=== PATIENT | male | born 1970 | race Caucasian/White ===

== ENCOUNTER 2019-11-11 16:47 | Inpatient (IN) | payer OTHER ==
[2019-11-11] VITALS (10 sets, daily range): BP systolic 72–100; BP diastolic 30–61
[~2019-11-11] VITALS: Ht 182.9 cm; Wt 80.9 kg
--- NOTE | 2019-11-11 17:05 | NUR ---
CALLED [facility], SPOKE WITH PANKAJ, RECIEVED FOLLOWING RECCOMNEDATION: LABS TO INCLUDE: UDS, TYLNEOL, ASA, BLOOD ALCOHOL, CMP, CBC CAN START MUCOMYST TREATMENT IF ELEVATED TYLENOL LEVEL OR IF LFT ARE ELEVATED. NARCAN PRN LOSS CONTROL REPRESENTATIVE DEPRESSION IV FLUIDS FOR HYPOTENSION MONITOR FOR 4-6 HOURS AFTER LAST NARCAN ADMIN
--- NOTE | 2019-11-11 17:05 | NUR ---
AYSHA FROM HOME, CALLED 911. C/O SUICIDAL IDEATION X TODAY, UNKNOWN SPECIFIC TIME. TOOK UNKNOWN AMOUNT OF ALCOHOL AND UNKNOWN DOSE OF ATIVAN AND NORCO WITH INTENT TO KILL HIMSELF, PER PATIENT. PT STATES 1ST ATTEMPT. PT VERY LETHARGIC WITH UNSTEADY GAIT AND WEAKNESS TO EXTREMETIES. PT SLOW TO RESPOND BUT RESPONDS TO VERBAL STIMULI. PUPILS SLUGGISH TO RESPOND, 2 MM. SLOW SPEECH. PT ALERT TO NAME AND BIRTHDAY, UNAWARE OF LOCATION AT THIS TIME, RE-ORIENTED. [address] UPON ARRIVAL TO ER PMH- DEPRESSION AND HTN RX- ATIVAN AND NORCO
--- NOTE | 2019-11-11 17:06 | NUR ---
PT RECIEVED 0.5 MG OF NARCAN IN FIELD BY EMS
--- NOTE | 2019-11-11 17:06 | NUR ---
PT PLACED ON 2 L NC Addendum: 11/11/19 at 1710 by [email or web address] AND EXPERIMENTAL ROCKET SLED MECHANIC
--- NOTE | 2019-11-11 17:09 | NUR ---
1-1 MONITORING, SITTER IN PLACE, HARMFUL OBJECTS REMOVED FROM PTS ROOM, PT PLACED IN HOSPITAL GOWN
--- NOTE | 2019-11-11 17:13 | NUR ---
IVF BOLUS STARTED .IV NEEDLE INSERTED BY EMS GAUGE 18 TAPE AND SECURED.
[2019-11-11] MEDS ORDERED: NACL 0.9% 1,000 ML IV ONE ×4 (17:25→20:25)
--- NOTE | 2019-11-11 17:32 | NUR ---
LAB AT BEDSIDE
[2019-11-11 17:50] LABS: BASOPHILS % (AUTO) 0.3 % (0.0-2.0); EOSINOPHILS % (AUTO) 0.1 % (0.0-4.0); HEMATOCRIT 43.1 % (36-52); HEMOGLOBIN 14.2 g/dL (12.0-18.0); LYMPHOCYTES # (AUTO) 1.2 K/uL (2.0-11.5); LYMPHOCYTES % (AUTO) 14.9 % (20.5-51.1); MEAN CORPUSCULAR HEMOGLOBIN 31 pg (27-31); MEAN CORPUSCULAR HGB CONC 33 g/dL (33-37); MEAN CORPUSCULAR VOLUME 94.2 fL (80-94); MONOCYTES # (AUTO) 0.5 K/uL (0.8-1.0); MONOCYTES % (AUTO) 6.3 % (1.7-9.3); NEUTROPHILS # (AUTO) 6.6 K/uL (1.8-7.7); NEUTROPHILS % (AUTO) 78.4 % (42.2-75.2); PLATELET COUNT (AUTO) 418 K/uL (140-450); RED BLOOD CELL COUNT(AUTO) 4.58 MIL/uL (4.20-6.10); RED CELL DISTRIBUTION WIDTH 13.8 % (11.6-13.7); WHITE BLOOD COUNT (AUTO) 8.4 K/uL (4.8-10.8)
--- NOTE | 2019-11-11 17:50 | NUR ---
# 14 FR Urinary catheter inserted utilizing sterile technique. Immediate return of 100 ml SHAY urine noted. Urine sample collected and sent to lab. Pt tolerated procedure WELL.
--- NOTE | 2019-11-11 17:50 | NUR ---
NADR AT THIS TIME
[2019-11-11 18:04] LABS: ANION GAP 16.3 (8-16); CARBON DIOXIDE 24.1 mmol/L (21-32); CREATININE 0.8 mg/dL (0.7-1.3); POTASSIUM 3.4 mmol/L (3.5-5.1)
[2019-11-11 18:05] LABS: SALICYLATE < 2.8 mg/dL (2.8-20.0)
--- NOTE | 2019-11-11 18:07 | NUR ---
NEURO CHECK-PT STILL VERY LETHARGIC BUT OPENS EYES TO HIS NAME BEING CALLED. PUPILS SLUGGISH TO RESPOND, 2 MM. SLOW SPEECH BUT ANSWERS QUESTIONS BEING ASKED. FOLLOWS COMMANDS IN SLOW MANNER. PT INSTANTLY FALLS BACK TO SLEEP AFTER RE-AWAKENING
--- NOTE | 2019-11-11 18:08 | NUR ---
SUGGESTED NARCAN TO DR GIBBS, VERBAL ORDER FOR ANOTHER BOLUS. NOT TO GIVE NARCAN
[2019-11-11 18:10] LABS: ALBUMIN 3.3 g/dL (3.4-5.0); TOTAL BILIRUBIN 0.3 mg/dL (0.0-1.0)
[2019-11-11 18:10] LABS: BARBITURATE, URINE NEG. ng/ml (NEG <=200); BENZODIAZEPINE, URINE NEG. ng/mL (NEG <=200); CANNABINOID, URINE NEG. ng/mL (NEG <=50); COCAINE, URINE NEG. ng/mL (NEG <=300); OPIATE, URINE POS. ng/mL (NEG <=2000); PHENCYCLIDINE SCREEN,URINE NEG. ng/mL (NEG <=25)
[2019-11-11 18:19] LABS: CREATINE KINASE MB 0.3 ng/mL (0-3.6)
--- NOTE | 2019-11-11 18:30 | NUR ---
NEW BP 93/59, BOLUS BEING ADMINISTERED. DR BERNIE DENIS OF PT STATUS
[2019-11-11] MEDS ORDERED: NALOXONE PFS 2 MG/2 ML SYR ONE ×2 (18:55→18:58)
--- NOTE | 2019-11-11 18:55 | NUR ---
PT NONREPSONSIVE TO STIMULI. ARMS FLACCID. APHASIC. STERNAL RUB APPLIED WITH NO RESPONSE FROM PT.
--- NOTE | 2019-11-11 18:56 | NUR ---
NARCAN 2 MG PUSHED IV, STERNAL RUB APPLIED. PT NON-RESPONSIVE TO STIMULI
--- NOTE | 2019-11-11 19:03 | NUR ---
JAWLIFT MANEUVER APPLIED
--- NOTE | 2019-11-11 19:03 | NUR ---
RT AT BEDSIDE
--- NOTE | 2019-11-11 19:03 | NUR ---
PTS OXYGEN DROPPED TO 78% ON NC. PT SWITCHED TO MASK 15 L, DR GIBBS AT BEDSIDE
[2019-11-11] MEDS ORDERED: PROPOFOL 1000 MG/100 ML PREMIX 100 ML IV ONE (19:04)
[2019-11-11] MEDS ORDERED: ETOMIDATE 20 MG/10 ML VIAL IVP ONE ×3 (19:04→19:40)
--- NOTE | 2019-11-11 19:04 | NUR ---
ETOMIDATE ADMINISTERED Addendum: 11/11/19 at 1927 by [email or web address] 20 MG
--- NOTE | 2019-11-11 19:05 | NUR ---
1 CC OF SUCCS ADMINISTERED Addendum: 11/11/19 at 1906 by [email or web address] 20 MG OF SUCCS
--- NOTE | 2019-11-11 19:07 | NUR ---
ANOTHER 40 MG OF SUCCS ADMINISTERED
--- NOTE | 2019-11-11 19:11 | NUR ---
ETOMIDATE 20 MG ADMINISTERED
--- NOTE | 2019-11-11 19:13 | NUR ---
ANOTHER 40 MG OF SUCCS ADMINISTERED
--- NOTE | 2019-11-11 19:15 | NUR ---
20 MG OF ETOMIDATE ADMINISTERED
--- NOTE | 2019-11-11 19:17 | NUR ---
Respiratory Therapist at bedside for respiratory intervention.
--- NOTE | 2019-11-11 19:18 | NUR ---
PROPOFOL STARTED AT 5 MCG/KG/MIN
[2019-11-11] MEDS ORDERED: PROPOFOL 200 MG/20 ML VIAL IV ONE (19:20)
--- NOTE | 2019-11-11 19:20 | NUR ---
X-Ray at bedside.
--- NOTE | 2019-11-11 19:22 | NUR ---
REPORT RECIEVED FROM LENNY DEJESUS, PATIENT INTUBATED, XRAY AT BEDSIDE.
--- NOTE | 2019-11-11 19:22 | NUR ---
REPORT GIVEN TO FREDDIE DEJESUS
--- NOTE | 2019-11-11 19:25 | NUR ---
PATIENT RASS -4. ET TUBE TO VENT, VSS ON MONITOR, PROPOFOL RUNNING IN LEFT AC 5MCG/MIN
[2019-11-11] MEDS ORDERED: SUCCINYLCHOLINE CHLORIDE 200 MG/10 ML VIAL IVP ONE ×3 (19:40)
--- NOTE | 2019-11-11 20:20 | NUR ---
BP DROPPED TO 84/55, DR GIBBS INFORMED. 1 LITER NS BOLUS ADMINISTERED ORDERED.
--- NOTE | 2019-11-11 20:26 | NUR ---
VS BEING DOCUMENTED Q15 MINUTES IN IV SPREADSHEET. BP IMPROVED TO 91/61 ERMD AWARE
[2019-11-11] MEDS ORDERED: LORazepam 2 MG/ML VIAL IM/IVP PRN (20:40)
[2019-11-11] MEDS ORDERED: MORPHINE SULFATE 2 MG/ML SYR IVP PRN (20:40)
[2019-11-11] MEDS ORDERED: HYDROcodone/APAP 5/325 MG 1 TAB TAB PO PRN (20:40)
[2019-11-11] MEDS ORDERED: ZOLPIDEM 5 MG TAB PO PRN (20:40)
[2019-11-11] MEDS ORDERED: ACETAMINOPHEN 325 MG TAB PO PRN (20:40)
[2019-11-11] MEDS ORDERED: DOCUSATE SODIUM 100 MG GELCAP PO PRN (20:40)
[2019-11-11] MEDS ORDERED: ONDANSETRON 4 MG/2 ML VIAL IM/IVP PRN (20:40)
--- NOTE | 2019-11-11 20:40 | NUR ---
OWUSU CATH PLACED USING STERILE TECHNIQUE PATIENT TOLERATED WELL.
[2019-11-11] MEDS ORDERED: LORazepam 2 MG/ML VIAL IVP PRN (20:45)
--- NOTE | 2019-11-11 20:50 | NUR ---
SPOKE WITH POISON CONTROL. RECOMMENDED STARTING PATIENT ON 21 HOUR MYCOMIST IV TREATMENT. MADE AWARE.
--- NOTE | 2019-11-11 20:59 | NUR ---
called [facility] errol [phone] and rena
[2019-11-11 21:09] LABS: CHOL/HDL RATIO 4.1 (1-4.5); MAGNESIUM 2.4 mg/dL (1.8-2.4); THYROID STIMULATING HORMONE 1.13 uIU/mL (0.34-3.74)
--- NOTE | 2019-11-11 21:35 | NUR ---
PATIENT BROUGHT INTO ICU BED 3 VIA GURNEY, TRANSFERRED TO BED WITHOUT INCIDENTS
--- NOTE | 2019-11-11 21:45 | NUR ---
PATIENT ADMITTED TO HOSPITAL ICU UNDER CARE OF DR PETER. REPORT GIVEN TO ICU NURSE DARCY. PATIENT TRANSPORTED TO BED 3 VIA GURNEY WITH RT, RN AND EMT ESCORT. PATIENT STABLE DURING TRANSPORT.
--- NOTE | 2019-11-11 21:45 | NUR ---
RECEIVED REPORT FROM ER NURSE. PATIENT 7.5 ETT TO VENT, 24 AT LIP LINE. ACVC 14 FI02 40% TV 600 PEEP 5. ANOx0, ON PROPOFOL DRIP AT 10 MCG/KG/MIN WITH RASS -3, DRY WEIGHT 80 KG. S1S2, ON MONITOR, SR ON MONITOR. [facility]U CATHETER IN PLACE, CLEAR YELLOW URINE NOTED. PERIPHERAL IV AT RIGHT AC 18G, LEFT AC 18G. SKIN WARM AND DRY. AFEBRILE. PENDING ON ADMITTING ORDERS. SIDERAILS UP x3, HOB 30 DEGREES, SAFETY ALARMS IN PLACE.
[2019-11-11] MEDS ORDERED: ACETYLCYSTEINE IV PER PHARMACY 1 EA MISC MC SCH (22:00)
--- NOTE | 2019-11-11 22:15 | NUR ---
PATIENTS BP IN 70'S-80'S, RESIDENT MD AT BEDSIDE, OK TO INCREASE MAINTENANCE FLUIDS TO BOLUS. WILL CARRY OUT.
[2019-11-11] MEDS ORDERED: NACL 0.9% 500 ML IV ONE (22:20)
--- NOTE | 2019-11-11 22:33 | NUR ---
ULTRASOUND AND RESIDENT MD AT PATIENTS BEDSIDE TO START CENTRAL LINE INSERTION. TIMEOUT PERFORMED, RN AT BEDSIDE, BOLUS INFUSING, PROPOFOL CURRENTLY AT 20 MCG/KG/MIN.
--- NOTE | 2019-11-11 22:49 | NUR ---
DR. BLOOD AT BEDSIDE
[2019-11-11 22:50] LABS: APPEARANCE,URINE SL CLOUDY (CLEAR); BILIRUBIN,URINE NEGATIVE (NEGATIVE); BLOOD, URINE NEGATIVE (NEGATIVE); COLOR,URINE YELLOW (YELLOW); LEUKOCYTE ESTERASE ,URINE NEGATIVE (NEGATIVE); NITRITE, URINE NEGATIVE (NEGATIVE); PH,URINE 7.5 (5.0-9.0); UGLUCOSE NEGATIVE (NEGATIVE)
--- NOTE | 2019-11-11 22:53 | NUR ---
called [facility] er[facility] [phone] to cancel picc insertion per resident
[2019-11-11] MEDS ORDERED: DEXTROSE 5% IV SCH (23:05)
[2019-11-11] MEDS ORDERED: ACETYLCYSTEINE IV SCH (23:05)
[2019-11-11] MEDS ORDERED: PIPERACILLIN/TAZOBACTAM 3.375 GM VIAL IV ONE (23:12)
--- NOTE | 2019-11-11 23:20 | NUR ---
ATTEMPTED OGT INSERTION, TUBING CONTINUES TO COIL IN MOUTH. MADE 2 ATTEMPTS, PATIENT HAS JAW CLENCHED. INSERTED TUBE TO RIGHT NARE, POSITIVE AIR CHECK/AUSCULTATION. PENDING XRAY CONFIRMATION. PROVIDED ORAL CARE.
[2019-11-11] MEDS ORDERED: NOREPINEPHRINE 8 MG in DEXTROSE 5% 250 ML IV PRN (23:40)
[2019-11-12] VITALS (104 sets, daily range): BP systolic 79–156; BP diastolic 30–83
[2019-11-12] MEDS ORDERED: NOREPINEPHRINE 4 MG/4 ML VIAL IV ONE (00:02)
--- NOTE | 2019-11-12 00:05 | NUR ---
RESULTS FOR CHEST XRAY IN, READ RESULTS TO RESIDENT MD AT BEDSIDE, CONFIRM OK TO USE CENTRAL LINE AND NGT .
[2019-11-12] MEDS ORDERED: DOPamine 400 MG/D5W PREMIX 250 ML IV PRN (00:25)
[2019-11-12] MEDS: NACL 0.9% 1,000 ML IV SCH ×2 (00:45→17:11)
[2019-11-12] MEDS: PIPERACILLIN/TAZOBACTAM 3.375 GM in DEXTROSE 5% 50 ML IV SCH ×4 (00:46→17:39)
[2019-11-12] MEDS ORDERED: DEXTROSE 5% IV SCH ×2 (01:00→04:00)
[2019-11-12] MEDS ORDERED: ACETYLCYSTEINE IV SCH ×2 (01:00→04:00)
[2019-11-12] MEDS ORDERED: ACETYLCYSTEINE IV 6000 MG/30 ML VIAL IV ONE ×3 (01:22→03:31)
--- NOTE | 2019-11-12 01:30 | NUR ---
PHONE CALL FROM POISON CONTROL [facility]; UPDATED ON PTS PRESENT CONDITION.QUESTIONS ANSWERED.
--- NOTE | 2019-11-12 02:30 | NUR ---
FIRST IV BAG OF ACETYLCYSTEINE STARTED, PHARMACY CALLED TO CONFIRM CORRECT FIRST DOSE/ORDER. PHARMACY AWARE MEDICATION DELAYED ON START DUE TO PENDING CENTRAL LINE PLACEMENT AND UNSTABLE BP AND HEART RATE. WILL CARRY OUT
--- NOTE | 2019-11-12 03:40 | NUR ---
2ND BAG OF ACETALCYSTEINE STARTED, CONFIRMED CORRECT CALCULATION BY 2 RN's. BAG TO INFUSE IN 4 HOURS.
--- NOTE | 2019-11-12 04:00 | NUR ---
PATIENT ON PROPOFOL DRIP @ 10MCG/KG/MIN, RASS -3. DOPAMINE DRIP INFUSING AT 5 MCG/KG/MIN, IV FLUIDS NS @ 60 ML/HR. ETT TO VENT ACVC 14, FI02 30%, TV 600 PEEP 5. [facility]U CATHETER IN PLACE, SHAY COLORED URINE NOTED. RIJ IN PLACE, TRIPLE LUMEN, OK TO USE. RIGHT AND LEFT AC PERIPHERAL IV'S 18G. ALL VITALS STABLE AT THIS TIME, BED IS LOCKED AND IN LOW POSITION, HOB 30 DEGREES.
[2019-11-12] MEDS ORDERED: PIPERACILLIN/TAZOBACTAM 3.375 GM VIAL IV ONE (05:23)
--- NOTE | 2019-11-12 06:30 | NUR ---
OWUSU BAG EMPTIED, OUTPUT 1300. ORAL CARE PROVIDED. PATIENT OPENED EYES AND ABLE TO MAKE EYE CONTACT, VERBALIZED UNDERSTANDING ABOUT VENT AND MEDICATIONS. WILL TITRATE PROPOFOL DRIP.
[2019-11-12 07:03] LABS: BASOPHILS % (AUTO) 0.1 % (0.0-2.0); EOSINOPHILS # (AUTO) 0.1 K/uL (0-0.4); EOSINOPHILS % (AUTO) 0.5 % (0.0-4.0); HEMATOCRIT 38.2 % (36-52); HEMOGLOBIN 12.4 g/dL (12.0-18.0); LYMPHOCYTES # (AUTO) 3.1 K/uL (2.0-11.5); LYMPHOCYTES % (AUTO) 16.9 % (20.5-51.1); MEAN CORPUSCULAR HEMOGLOBIN 31 pg (27-31); MEAN CORPUSCULAR HGB CONC 32 g/dL (33-37); MEAN CORPUSCULAR VOLUME 95.3 fL (80-94); MONOCYTES # (AUTO) 1.3 K/uL (0.8-1.0); MONOCYTES % (AUTO) 7.4 % (1.7-9.3); NEUTROPHILS # (AUTO) 13.6 K/uL (1.8-7.7); NEUTROPHILS % (AUTO) 75.1 % (42.2-75.2); PLATELET COUNT (AUTO) 372 K/uL (140-450); RED BLOOD CELL COUNT(AUTO) 4.01 MIL/uL (4.20-6.10); RED CELL DISTRIBUTION WIDTH 14.1 % (11.6-13.7); WHITE BLOOD COUNT (AUTO) 18.1 K/uL (4.8-10.8)
[2019-11-12 07:20] LABS: ACETAMINOPHEN 6.8 ug/ml (10-30); ALBUMIN 2.7 g/dL (3.4-5.0); ANION GAP 18.3 (8-16); CARBON DIOXIDE 21.9 mmol/L (21-32); CREATININE 0.8 mg/dL (0.7-1.3); MAGNESIUM 1.5 mg/dL (1.8-2.4); PHOSPHORUS 2.3 mg/dL (2.5-4.9); POTASSIUM 3.2 mmol/L (3.5-5.1); TOTAL BILIRUBIN 0.4 mg/dL (0.0-1.0)
--- NOTE | 2019-11-12 07:20 | NUR ---
RECEIVED INTUBATED PT WITH A 7.5 ETT SECURED @24 TEETH/GUM ON VENT. SETTINGS AC/VC 14, VT 600, PEEP 5 AND FIO2 30%. PT SEDATED AT THIS TIME BUT DOES OPEN EYES WHEN SPOKEN TO. AIRWAY IS SECURE WITH ANCHOR FAST DEVICE AND IS PATENT. VENT IS PLUGGED INTO A RED OUTLET WITH ALARMS ON AND FUNCTIONING. WILL CONTINUE TO MONITOR.
--- NOTE | 2019-11-12 07:30 | NUR ---
RECEIVED REPORT FROM BAKER PASTRY RN. PT IS SEDATED, RASS -3. TEMP 99.4, FLACC 0. NORMAL SINUS RHYTHM ON MONITOR. S1 S2 HEARD. PULSES PALPABLE TO ALL EXTREMITIES. CAP REFILL < 3 SEC. PT IS ON ETT TO VENT W/ SETTINGS A/C VC FIO2 30%, TV 600, RR 14, PEEP 5. LUNGS SOUND CLEAR BILATERALLY. BREATHING EVEN AND UNLABORED. NGT IN PLACE TO RIGHT NARE. PLACEMENT CONFIRMED. ABDOMEN SOFT, NONTENDER, NONDISTENDED. BOWEL SOUNDS PRESENT X 4 QUADRANTS. CENTRAL LINE TLC TO RIGHT IJ AND PERIPHERAL IVS G 18 TO LEFT AND RIGHT ANTECUBITAL INTACT AND PATENT. PT IS ON PROPOFOL DRIP AT 25 MCG/KG/MIN (DRY WEIGHT 80 KG), DOPAMINE DRIP AT 5 MCG/KG/MIN, NS AT 60 ML/HR, ACETALCYSTEINE AT 130 ML/HR. [facility]U CATH IN PLACE DRAINING CLEAR YELLOW URINE. SKIN IS DRY AND WARM TO TOUCH. HOB 30 DEGREES. BED IN LOWEST POSITION LOCKED. CALL LIGHT WITHIN REACH. NO SIGNS OF DISTRESS NOTED AT THIS TIME. WILL CONTINUE TO MONITOR.
--- NOTE | 2019-11-12 07:35 | NUR ---
DR. PETER AND RESIDENT GROUP IN TO SEE PT. WILL FOLLOW UP ON ORDERS.
[2019-11-12] MEDS ORDERED: PROPOFOL 1000 MG/100 ML PREMIX 100 ML IV ONE (08:16)
--- NOTE | 2019-11-12 08:50 | NUR ---
SPOKE WITH RESIDENT PHYSICIAN DR. ANN REGARDING ACETYLCYSTEINE THIRD DOSE. PER DR. ANN, HE WILL DISCONTINUE ACETYLCYSTEINE SINCE ALK PHOS AND TYLENOL LEVELS ARE NORMAL.
[2019-11-12] MEDS ORDERED: MULTIVITAMIN 1 TAB PO SCH (09:00)
[2019-11-12] MEDS ORDERED: MULTIVITAMIN-12 10 ML, THIAMINE 100 MG, MAGNESIUM SULFATE 50% 2,000 MG, FOLIC ACID 1 MG... IV SCH ×5 (09:00)
[2019-11-12] MEDS ORDERED: LACTOBACILLUS RHAMNOSUS GG 1 EACH CAP PO SCH (09:00)
[2019-11-12] MEDS ORDERED: FOLIC ACID 1 MG TAB PO SCH (09:00)
[2019-11-12] MEDS ORDERED: THIAMINE 100 MG TAB PO SCH (09:00)
--- NOTE | 2019-11-12 09:02 | NUR ---
PATIENT HAS BEEN SCREENED AND CATEGORIZED HIGH NUTRITION RISK. PATIENT WILL BE SEEN WITHIN 1-2 DAYS OF ADMISSION. 11/11/19-11/13/[address]
--- NOTE | 2019-11-12 09:10 | NUR ---
DISCHARGE PLANNING: CONTACTED [place] AT [phone], ABLE TO SPEAK TO LISET BARBA. SHE STATED THERE IS NO ASSIGNED CM YET OF THIS TIME. THEIR NURSES ARE IN THE MEETING OF THE MOMENT AND ASSIGNMENTS WILL NOT BE DONE UNTIL 929. PROVIDED HER OF MY CONTACT INFO. WILL FOLLOW UP. Addendum: 11/12/19 at 1132 by Nai Taylor CM CONTACTED [place], ABLE TO SPEAK TO RYAN BARBA. HE STATED HE WILL TRANSFER ME TO [facility] WORKING ALONG SIDE THE CM. SPOKE TO [facility], HE STATED THE CM ASSIGNED TO THE PATIENT IS PRANAY AYALA. INFORMED HIM THAT PATIENT IS STABLE FOR TRANSFER. HE STATED HE WILL FAX ME OVER THE TRANSFER CHECKLIST. Addendum: 11/12/19 at 1130 by Nai Taylor CM RECEIVED A CALL FROM PRANAY AYALA CM AT [facility]. SHE REQUESTED FOR HEAD CT RESULT. I INFORM HER THAT IT IS STILL PENDING. I INFORMED HER THAT I CAN FAX OVER CXR RESULTS. SHE PROVIDED ME OF HER DIRECT PHONE NUMBER [phone]. CXR RESULTS FAXED TO [phone]. Addendum: 11/12/19 at 1439 by Nai Taylor 49 Y/O MALE FROM HOME, WHO CAME IN DUE TO DRUG OVERDOSE. ORALLY INTUBATED IN THE ED AND PLACED ON VENT, SEDATED WITH PROPOFOL. PAST MEDICAL HISTORY INCLUDE HTN AND DEPRESSION. INITIAL DIAGNOSIS OF RESPIRATORY FAILURE, ALCOHOL AND OPIOID INTOXICATION. CURRENT LABS INCLUDE 18.1, H/H 12.4/38.2, NA/K 146/3.2, BUN/CREA 7/0.8 AND MAG 1.5. CXR SHOWED PATCHY ALTELECTASIS VS CONSOLIDATION AT THE LUNG BASES AND MILD CARDIOMEGALY AND PULMONARY VASCULAR CONGESTION. [facility] CENTRAL IN PLACE. PSYCH CONSULT WITH DR. ALLEN RE: [id number], SUICIDAL ATTEMPT. PULMO CONSULT WITH DR. BLOOD RE: RESPIRATORY FAILURE. WAS ON LEVOPHED DRIP AND WAS HELD 11/12/19 0124. ON ZOSYN IV. DC PLAN PENDING ON PATIENT'S RESPONSE TO TREATMENT.
[2019-11-12] MEDS: PROPOFOL 1000 MG/100 ML PREMIX 100 ML IV PRN ×4 (09:22→22:55)
--- NOTE | 2019-11-12 09:24 | NUR ---
PT AWAKE AND ALERT IN BED NOT IN ANY DISTRESS. NURSE IS BEDSIDE. WILL CONTINUE TO MONITOR.
--- NOTE | 2019-11-12 09:30 | NUR ---
MEDICATIONS ADMINISTERED ORDERED. PT TOLERATED WELL.
--- NOTE | 2019-11-12 11:09 | NUR ---
PT AWAKE IN BED ABLE TO COMMUNICATE BY NODDING HEAD AND WRITING PT NOT IN ANY DISTRESS AT THIS TIME. WILL CONTINUE TO MONITOR.
--- NOTE | 2019-11-12 12:30 | NUR ---
RECEIVED CALL FROM PT'S , TYRONE STEWART ([phone]). UPDATES GIVEN ON PT'S CONDITION.
--- NOTE | 2019-11-12 13:00 | NUR ---
SPOKE WITH DELIA FROM POISON CONTROL, UPDATED LIVER FUNCTION LABS AND TYLENOL LEVEL, AND THAT THIRD DOSE OF ACETYLCYSTEINE IS DC'D AND NEXT LABS SCHEDULED TONIGHT. PER DELIA, ACCORDING TO CURRENT LAB RESULTS, SCHEDULED LABS TONIGHT ARE OPTIONAL.
--- NOTE | 2019-11-12 13:11 | NUR ---
SPOKE TO BEDSIDE REGARDING PT STATUS. PHYSICIAN RECOMMENDS FOR PT TO REMAIN INTUBATED AND ATTEMPT DAILY WEANING TRIALS BUT NOTHING FURTHER. NURSE AWARE.
--- NOTE | 2019-11-12 13:11 | NUR ---
DR. HOFFMAN AT BEDSIDE. UPDATE GIVEN ON PT'S CONDITION. NO NEW ORDER AT THIS TIME.
[2019-11-12] MEDS ORDERED: POTASSIUM CHLORIDE 40 MEQ, LIDOCAINE MPF 1% 25 MG in NACL 0.9% 250 ML IV SCH (14:00)
--- NOTE | 2019-11-12 14:20 | NUR ---
BACK FROM RADIOLOGY DEPT, CT HEAD TAKEN. PT TOLERATED WELL. VSS. NO S/SX OF DISTRESS NOTED AT THIS TIME.
--- NOTE | 2019-11-12 15:27 | NUR ---
PT SUCTIONED OBTAINED LARGE AMOUNT OF GAINES COLORED SECRETIONS, AIRWAY IS PATENT AND ETT IS SECURE. PT OPENS HIS EYES AND NODS TO QUESTIONING, NO DISTRESS NOTED. WILL CONTINUE TO MONITOR.
--- NOTE | 2019-11-12 15:33 | NUR ---
UPDATES GIVEN TO PRANAY AYALA FLYING [employer] SALESPERSON FROM [employer].
--- NOTE | 2019-11-12 15:39 | NUR ---
11/12/19 RD INITIAL ASSESSMENT COMPLETED PLEASE REFER TO NUTRITION ASSESSMENT UNDER CARE ACTIVITY FOR ESTIMATED NUTRITIONAL NEEDS. 1. CONTINUE NPO APPROPRIATE 2. IF TUBE FEED NEEDS TO BE INITIATE, RECOMMEND JEVITY 80 ML/HR -THIS WILL PROVIDE A VOLUME OF 1920 ML, 2340 KCAL, 106 GMS PROTEIN. IT WILL MEET 96% OF ESTIMATED ENERGY NEEDS AND 100% OF PROTEIN NEEDS. 3. IF PT CAN BE WEAN OFF VENTILATION AND START PO INTAKE, RECOMMEND NA 2GM DIET RD TO FOLLOW-UP 2-3 DAYS, HIGH RISK NATHEN FONTANA RD
--- NOTE | 2019-11-12 16:20 | NUR ---
SPOKE WITH HAM FROM [facility]. PER HAM, SHE IS WORKING ON TRANSFERRING PT TO [facility]. NO BED AVAILABLE YET AT THIS TIME. WILL CALL [facility] WHEN BED IS AVAILABLE.
[2019-11-12] MEDS ORDERED: PANTOPRAZOLE 40 MG INJ VIAL IVP SCH (17:00)
--- NOTE | 2019-11-12 17:00 | NUR ---
DR. HERNANDEZ MADE AWARE OF PT'S TEMP 101. WILL FOLLOW UP ON ORDERS.
--- NOTE | 2019-11-12 17:29 | NUR ---
PT REMAINS SEDATED AT THIS TIME BUT OPENS HIS EYES WHEN SPOKEN TO. PT NOT IN ANY DISTRESS AT THIS TIME. PT SUCTIONED OBTAINED MODERATE AMOUNT OF THICK GAINES COLORED SECRETIONS, ETT IS SECURE WITH A PATENT AIRWAY. VENT ALARMS REMAIN ON AND FUNCTIONING.
[2019-11-12] MEDS ORDERED: KETOROLAC 15 MG/ML VIAL IM SCH (17:30)
--- NOTE | 2019-11-12 18:15 | NUR ---
RECEIVED CALL FROM STEPHANIE FROM [employer] REGARDING PT TRANSFER. PT WILL BE GOING TO ROOM [address] [facility]. METAL TANK ERECTOR TIME IS 2100. PER STEPHANIE, GIVE REPORT TO [phone] AT 20:00. WILL ENDORSE TO INLAYER SILVER RN. PT AND , TYRONE MADE AWARE.
[2019-11-12] MEDS ORDERED: MORP2SOL18 IVP (18:52)
[2019-11-12] MEDS ORDERED: DIPDRIP IV (18:58)
[2019-11-12] MEDS ORDERED: HEPA500056 SUBQ (18:59)
[2019-11-12] MEDS ORDERED: FOLI1TAB90 PO (18:59)
[2019-11-12] MEDS ORDERED: MULT-405 PO (18:59)
[2019-11-12] MEDS ORDERED: ONDA2SOL45 IM/IVP (19:07)
[2019-11-12] MEDS ORDERED: LACT10CA PO (19:07)
[2019-11-12] MEDS ORDERED: [UNRECOGNIZED DRUG - OTHER] IV (19:07)
[2019-11-12] MEDS ORDERED: PIPE1PDS26 IV (19:07)
[2019-11-12] MEDS ORDERED: PANT40PD7 IVP (19:07)
--- NOTE | 2019-11-12 20:04 | NUR ---
REPORT GIVEN TO SALES REPRESENTATIVE MALT LIQUORS RN FOR CONTINUITY OF CARE. NO SIGNS OF DISTRESS NOTED AT THIS TIME.
--- NOTE | 2019-11-12 20:08 | NUR ---
RECEIVED REPORT FROM DAYSHIFT NURSE AT PATIENTS BEDSIDE. PATIENT ETT TO VENT, ACVC 14, FI02 28%, TV 600, PEEP 5. LUNG SOUNDS CLEAR, VISIBLE CHEST RISE AND FALL, NO SIGNS OF SOB OR CONGESTION. SATURATIONS 100%. S1S2, SR ON MONITOR. RIJ IN PLACE INFUSING PROPOFOL AT 40 MCG/MIN/KG, RASS -3, DRY WEIGHT 80 KG. PATIENT OPENS EYES TO LIGHT PAIN. IV FLUIDS INFUSING NS @ 60 ML/HR. LEFT AND RIGHT AC PERIPHERAL IV'S 18G, FLUSHED AND INTACT. [facility]U CATHETER IN PLACE WITH CLEAR YELLOW URINE NOTED. SKIN INTACT, WARM AND DRY, AFEBRILE, 98.8 VIA TEMPORAL ARTERY SCAN. ABDOMEN IS SOFT AND NONTENDER, WITH ACTIVE BOWEL SOUNDS. BED IS LOCKED IN LOWEST POSITION, WITH HOB 30 DEGREES, AND SIDERAILS UP x3. WILL CONTINUE TO MONITOR.
--- NOTE | 2019-11-12 20:09 | NUR ---
CURRENT SET OF VITALS GIVEN TO STEPHANIE FROM [facility].
--- NOTE | 2019-11-12 20:10 | NUR ---
CALLED REPORT TO RECEIVING RN AT [facility]. REPORT GIVEN TO ANJELICA BAILEY. [facility] TRANSPORT SCHEDULED AT 2100.
--- NOTE | 2019-11-12 20:38 | NUR ---
DELIA FROM POISON CONTROL CALLED FOR UPDATE, MADE AWARE ALL LIVER FUNCTION TESTS AND ACETAMINOPHEN VALUES ARE STABLE. ENDORSED MD Lemus/Ted'royer ACETYLCYSTEINE DRIP.
--- NOTE | 2019-11-12 20:50 | NUR ---
CALLED PATIENTS - TYRONE, TO UPDATE ON PATIENTS NEW ROOM AND NEW RN THAT WILL RECEIVE PATIENT.
--- NOTE | 2019-11-12 21:45 | NUR ---
[facility] STILL NOT HERE TO PICKUP PATIENT AT SCHEDULED TIME 2100. CALLED [facility], CLARIFIED THAT CCT RN IS DELAYED FOR PICKUP AND NEW DIRECTOR OF OPERATIONS SUPPORT TIME WILL BE 2200.
--- NOTE | 2019-11-12 22:40 | NUR ---
GAVE REPORT AND ENDORSED CARE TO CCT RN YANICK. NEW TUBING PROVIDED FOR PROPOFOL CONTINUOUS DRIP, MEDICATION BOTTLE EMPTY, SCANNED AND STARTED NEW BOTTLE FOR TRANSPORT. RT, CCT RN, AND 2 EMT's AT BEDSIDE. PATIENT TRANSFERRED TO [facility] WITHOUT INCIDENT. RIJ CENTRAL LINE INTACT, INFUSING CONTINUOUS DRIP. LEFT AND RIGHT PERIPHERAL IV's 18G INTACT, SALINE LOCKED. OWUSU IN PLACE.
--- NOTE | 2019-11-12 23:00 | NUR ---
PATIENTS BELONGINGS AND CHART GIVEN TO TRANSPORT TEAM, ALL PAPERWORK SIGNED OFF. PATIENT DISCHARGED.
[2019-11-13 00:51] LABS: ANION GAP 13.2 (8-16); POTASSIUM 3.2 mmol/L (3.5-5.1)
[2019-11-13 00:52] LABS: CREATININE 0.8 mg/dL (0.7-1.3)
[2019-11-13 00:53] LABS: ALBUMIN 2.3 g/dL (3.4-5.0); TOTAL BILIRUBIN 0.6 mg/dL (0.0-1.0)
== END 2019-11-12 23:00 | disposition short-term general hospital (02) | DRG 917 ==
LOC: MED 16:47 → MIC 20:40
PROVIDERS: ADMIT General Practice; ATTEND General Practice
PROC: 5A1945Z Respiratory Ventilation, 24-96 Consecutive Hours (ICD-10-PCS; principal; 2019-11-11)
PROC: 0BH17EZ Insertion of Endotracheal Airway into Trachea, Via Natural or Artificial Opening (ICD-10-PCS; 2019-11-11)
PROC: 02HV33Z Insertion of Infusion Device into Superior Vena Cava, Percutaneous Approach (ICD-10-PCS; 2019-11-11)
PROC: B548ZZA Ultrasonography of Superior Vena Cava, Guidance (ICD-10-PCS; 2019-11-11)
DX: T42.4X2A Poisoning by benzodiazepines, intentional self-harm, initial encounter (principal); G92 Toxic encephalopathy; J69.0 Pneumonitis due to inhalation of food and vomit; J96.01 Acute respiratory failure with hypoxia; E44.1 Mild protein-calorie malnutrition; E87.0 Hyperosmolality and hypernatremia; R45.851 Suicidal ideations; E87.6 Hypokalemia; F10.10 Alcohol abuse, uncomplicated; I10 Essential (primary) hypertension; R13.11 Dysphagia, oral phase; F32.9 Major depressive disorder, single episode, unspecified; I95.9 Hypotension, unspecified; E78.5 Hyperlipidemia, unspecified; T39.1X2A Poisoning by 4-Aminophenol derivatives, intentional self-harm, initial encounter; T51.92XA Toxic effect of unspecified alcohol, intentional self-harm, initial encounter; Y90.7 Blood alcohol level of 200-239 mg/100 ml; Z68.24 Body mass index [BMI] 24.0-24.9, adult; Y92.89 Other specified places as the place of occurrence of the external cause
CPT/HCPCS: 36415; 70450; 71045; 80053; 80305; 81003; 82550; 82553; 83036; 83605; 83690; 83735; 84100; 84134; 84443; 84484; 85025; 85610; 85730; 87040; 87070; 87081; 87086; 87205; 89220; 93005; 94002; 94003; A9153; C9113; G0480; G0482; J0132; J0696; J1265; J1642; J1644; J1885; J2001; J2310; J2543; J2704; J3411; J3475; J3480; J3490; J7030; J7060; Q0092